=== PATIENT | male | born 1955 | race Caucasian/White ===

== ENCOUNTER 2018-01-30 22:42 | Emergency (ER) | payer BC ==
[~2018-01-30] VITALS: Ht 172.7 cm; Wt 89.9 kg
[~2018-01-30 22:42] MED LIST: ASPERDRINK81 MG PO; ASPIR-LOW81 MG PO; DILAUDID2 MG PO; FLOMAX0.4 MG PO; ZOCOR40 MG PO
[2018-01-30 23:22] LABS: HEMATOCRIT 44.4 % (38.0-50.0); HEMOGLOBIN 15.6 G/DL (12.5-16.6); MCH 32.2 PG (29.0-34.0); MCHC 35.1 G/DL (30.0-36.0); MCV 91.5 FL (86-99); PLATELET COUNT 197 K/uL (156-360); RBC DIS.WIDTH-SD 40.4 % (39-53); RED BLOOD COUNT 4.85 M/uL (4.00-5.50)
[2018-01-30 23:34] LABS: APPEARANCE SL.HAZY ((CLEAR)); BILIRUBIN NEGATIVE; BLOOD LARGE; COLOR YELLOW ((YELLOW)); GLUCOSE (STRIP) NEGATIVE; KETONES NEGATIVE; LEUKOCYTES NEGATIVE; NITRITE NEGATIVE; PROTEIN (STRIP) 30; SPECIFIC GRAVITY 1.024 (1.000-1.030)
[2018-01-30 23:38] LABS: CHLORIDE 106 mEq/L (99-109); POTASSIUM 4.1 mEq/L (3.7-5.4); SODIUM 145 mEq/L (136-147)
[2018-01-30 23:40] LABS: GLUCOSE 108 mg/dL (70-99)
[2018-01-30 23:44] LABS: CREATININE 1.7 mg/dL (0.6-1.3); GFR ESTIMATE (CALCULATED) 43 mL/min/ (58.99-99999)
[2018-01-30 23:45] LABS: UREA NITROGEN (BUN) 25 mg/dL (9-23)
[2018-01-30 23:55] LABS: BACTERIA NONE SEEN /HPF; CALCIUM OXALATE CRYSTALS 2+ /HPF; EPITHELIAL CELLS NONE SEEN /HPF; MUCUS TRACE /LPF; RED BLOOD CELLS TNTC /HPF (0-5); UCUL ADDED? YES; WHITE BLOOD CELLS 0-5 /HPF (0-5)
[2018-01-31] MEDS ORDERED: FLOMAX0.4 MG PO (03:54)
[2018-01-31] MEDS ORDERED: MOTRIN800 MG PO (03:54)
[2018-01-31] MEDS ORDERED: PERCOCET 5/31 TABLET PO (03:54)
[2018-01-31 04:26] VITALS: BP 153/91
== END 2018-01-31 04:26 | disposition home or self-care (01) ==
LOC: EME 22:42
DX: N20.1 Calculus of ureter (principal); Z87.442 Personal history of urinary calculi; Z79.82 Long term (current) use of aspirin
CPT/HCPCS: 74176; 80048; 81003; 85027; 87086; 99281; 99284; J3010; J7040; J7050

== ENCOUNTER 2018-02-09 11:34 | Day surgery (SDC) | payer BC ==
[~2018-02-09] VITALS: Ht 172.7 cm; Wt 88.5 kg
[~2018-02-09 11:34] MED LIST changes: +MOTRIN800 MG PO; +PERCOCET 5/31 TABLET PO; +VITAMIN D2000 UNI1 PO
[2018-02-09 12:18] VITALS: BP 132/94
[2018-02-09 14:20] VITALS: BP 156/86
[2018-02-09 15:11] VITALS: BP 147/84
== END 2018-02-09 15:15 | disposition home or self-care (01) ==
LOC: SDC 11:34
PROVIDERS: Urology
DX: N20.1 Calculus of ureter (principal); N13.5 Crossing vessel and stricture of ureter without hydronephrosis; N35.9 Urethral stricture, unspecified; Z80.42 Family history of malignant neoplasm of prostate; N40.1 Benign prostatic hyperplasia with lower urinary tract symptoms; R33.9 Retention of urine, unspecified; Z79.82 Long term (current) use of aspirin
CPT/HCPCS: 74420; 82365 90; 93005; C1726; C2625; J0690; J1100; J2405; J3010